=== PATIENT | male | born 1985 | race Caucasian/White ===

== ENCOUNTER 2017-06-21 12:17 | Emergency (ER) | payer OTHER, MEDICAID ==
[~2017-06-21] VITALS: Ht 177.8 cm; Wt 83.9 kg
[~2017-06-21 12:17] MED LIST: BUPRENORPHINE H1 TAB SL; FLEXERIL10 MG PO; HYDROCODONE-APA1 TA1 PO; LORTAB 5/500 501 TAB PO; PREDNISONE50 MG PO; TYLENOL W/CODEI1 TA2 PO
--- OUTSIDE RECORDS SUMMARY | 2017-06-21 12:26 | External Medical Summary Rpt | CCD ---
Author Author , MARLEN GEE Address Unknown Phone [email or web address] Immunization Name Date Rout CVX Reac Dose Comm Prov Is Faci e tion ent ider Refu lity Give sed n Hep 01-0 8 999 Hist H149 No H149 B, 4-20 ori ped/ 02 al adol Info rmat ion - Sour ce Unsp ecif ied Hep 07-0 8 999 Hist H149 No H149 B, 3-20 oric ped/ 01 al adol Info rmat ion - Sour ce Unsp ecif ied Td 05-2 9 999 Hist H149 No H149 (shaneka 9-20 oric lt), 01 al Info adso rmat rbed ion - Sour ce Unsp ecif ied Hep 05-2 8 999 Hist H149 No H149 B, - ori ped/ al adol Info rmat ion - Sour ce Unsp ecif ied MMR 04-1 3 999 Hist H149 No H149 7-19 oric 97 al Info rmat ion - Sour ce Unsp ecif ied
--- OUTSIDE RECORDS SUMMARY | 2017-06-21 12:26 | External Medical Summary Rpt | CCD ---
Author Author , MARLEN GEE Address Unknown Phone [email or web address] Immunization Name Date Rout CVX Reac Dose [...]
--- OUTSIDE RECORDS SUMMARY | 2017-06-21 12:26 | External Medical Summary Rpt | CCD ---
Author Author , MARLEN Organization MARLEN Address Unknown Phone Care Team Providers Care Front Office Director Name Role Phone HAMPTON ALL, HAMPTON ALL Unavailable Unavailable MADELYN CERRATOLEY Unavailable Unavailable GRIFFIN JARETH, Unavailable Unavailable GRIFFIN JARETH FAUGHN GALAN, FAUGHN Unavailable Unavailable GALAN FRYMAN, FRYMAN Unavailable Unavailable FRYMAN EUG, FRYMAN Unavailable Unavailable EU[facility] Un[facility] Unavailable [facility], [facility] Unavailable Unavailable INC, [facility], Unavailable [facility]available [facility], Unavailable Unavailable [facility] Unavailable Unavailable [facility], [facility], Unavailable Unavailable [facility] Unavailable Unavailable [facility], [facility] LIAU JAM, LIAU JAM Unavailable Unavailable [facility], Unavailable Unavailable PLL[facility], [facility] FAWN SCHAFER, FAWN SCHAFER Unavailable Unavailable RENUSCH IRIS, RENUSCH Unavailable Unavailable IRIS GREENE, III, GREENE, Unavailable Unavailable III [facility], Unavailable Unavailable [facility], Unavailable Unavailable [facility] Purpose Continuity of Care Document - 02-03-2015 through 2016 Problems Code Diagnosis DOS Provider Status [id number] PAIN IN 03-16-[address] [facility] LEFT PHYSICIAN SHOULDER GROUP K047 PERIAPICAL 10-09-2016 [facility] WITHOUT SINUS T71715 MIGRAINE 09-08-[address] [facility] W/O AURA PHYSICIANS NOT INTRACT GROUP W/O STAT MIGRAIN K5900 CONSTIPATIO 03-04-2016 [facility] N [facility]ICAL UNSPECIFIED IMAGING ASS K5909 OTHER 03-04-2016 [facility] N INC R1032 LEFT LOWER 03-04-2016 [facility] PAIN IM[facility]ING ASS M7989 OTHER 12-15-2015 [place] [facility]ICAL SPECIFIED SERV SOFT TISSUE FOUNDATION DISORDERS [id number] DSPL FX 12-15-2015 [facility] PHALANX LT THUMB INIT ENC CLOS FX G8918 OTHER ACUTE 12-14-2015 [facility] POSTPROCEDU INC RAL PAIN Z50722 PAIN IN 12-14-2015 [facility] LEFT PHYSICIANS, FINGERS PLLC Z720 TOBACCO USE 12-14-2015 [facility] INC [id number] PAIN IN 11-10-2015 [facility] RIGHT MEDICAL FINGERS IMAGING ASS [id number] LACERATION 11-10-2015 [place] W/O FB LT HOSPITAL THUMB W/O DAMAGE NAIL INIT [id number] DSPL FX 11-10-2015 [facility] PROX PHALNX MEDICAL RT THUMB IMAGING ASS INITIAL ENC OPEN FX [id number] DSPL FX 11-10-2015 [place] [facility] PROX PHALNX SERV LT THUMB FOUNDATION INITIAL ENC OPEN FX [id number] PARTIAL 11-10-2015 [facility] MCP IMAGING ASS AMPUTATION RT THUMB INIT [id number] PARTIAL 11-10-2015 [facility] TRAUMA PHYSICIANS, TRANSPHALAN PLLC GEAL AMP LT THUMB INIT [id number] CONTACT 11-10-2015 [facility] WITH [employer] TOOL INITIAL ENCOUNTER Z23 ENCOUNTER 11-10-2015 [facility] IMMUNIZATIO N 31314 ABDOMINAL 04-01-2015 [facility] PA[facility] OTHER [facility] HOS[facility] SPECIFIED INC SITE 31072 ABDOMINAL 02-03-2015 [facility] PAIN, LEFT MEDICAL LOWER IMAGING ASS QUADRANT Medications Na ND Rx Da Fi Fi Am Da Di Ph RX Ph St me C No te ll ll ou ys ag ar # ys at rm s nt no ma ic us Or Da si cy ia de te s n re d BU 00 08 09 56 28 00 CL Ac IA 22 -1 -1 .0 00 IN ti EN 83 9- 5- 00 00 IC ve OR 15 20 20 43 PH 57 17 17 99 PH IN 3 69 AR -N MA AL CY OX ON 8- 2 MG SL GA 16 02 03 60 30 00 EA Ac BA 71 -1 -[address] ti PE 40 7- 7- 00 00 SI ve NT 66 20 20 47 DE IN 10 17 17 66 1 08 PH 10 AR 0 MA MG CY CA OF PS CY UL NT E HI AN A IN C CE 68 02 03 42 14 00 WA Ac PH 18 -1 -1 .0 00 L- ti AL 00 1- 0- 00 07 MA ve EX 12 20 20 63 RT IN 20 17 17 82 2 02 PH 50 AR 0 MA MG CY CA #5 PS 71 UL E GA 16 01 02 60 30 00 EA Ac BA 71 -1 -[address] ti PE 40 1- 3- 00 00 SI ve NT 66 20 20 47 DE IN 10 17 17 21 1 46 PH 10 AR 0 MA MG CY CA OF PS CY UL NT E HI AN A IN C Immunization Name Date Rout CVX Reac Dose Comm Prov Is Faci e tion ent ider Refu lity Give sed n TDAP 03- 115 VELASQUEZ No VELASQUEZ 4-20 DANNY DANNY VACC 16 MEM MEM INE 7 HOSP HOSP YRS/ INC INC > IM Procedures Procedure DOS Code Location Performer Comment THERAPEUT 58983 BILLY JACKSON 7 Retention [employer] III PROPHYLAC TIC/DX INJECTION SUBQ/IM INJECTION J0696 LEODAN GREENE 7 Retention EducationO, Fortuna Vini III CEFTRIAXO NE SODIUM PER 250 MG THERAPEUT 54268 [facility] IC 6 PHYSICIAN PHYSICIAN PROPHYLAC S GROUP S GROUP TIC/DX INJECTION SUBQ/IM UNCLASSIF J3490 [facility] IED DRUGS 6 [place] [address] [facility] ABDOMEN & 6 [facility] PELVIS INC INC W/CONTRAS T MATERIAL RADEX 91194 [facility] FINGR 6 Y Y MINIMUM 2 HOSPITAL HOSPITAL VIEWS RADEX 22379 [facility] GRIFFIN HAND 6 MEDICAL JARETH MINIMUM 3 IMAGING VIEWS ASS UNCLASSIF J3490 [facility] IED DRUGS 6 MEM H[facility] INC ANES 55060 [facility] GILMAR RADIUS 6 Y OF ULNA [facility] WRIST/BELLO HOSPI D BONES CLOSED PX PRQ SKEL 92270 [place] LIAU JAM FIXJ DSTL 6 MEDICAL PHLNGL SERV FX FOUNDATIO FNGR/THMB N EA RADEX 07726 [facility]PTON ALL FINGR 6 MEDICAL MINIMUM 2 IMAGING VIEWS ASS INFUSION J7030 [facility] NORMAL 6 Y [facility] SOLUTION 1000 CC TDAP 32186 [facility] VACCINE 7 6 MEM HOSP MEM [facility]OSP YRS/> IM INC INC INJECTION 68123 [facility] ANES 6 [facility] OTHER INC INC PERIPHERA L NERVE/BRA NCH UNCLASSIF J3490 [facility] IED DRUGS 6 [place] [address] [facility] INFUSION 6 Y Y THERAPY/P [facility] ROPHYLAXI S /DX 1ST TO 1 HR THERAPEUT 50282 [facility] IC 6 Y Y INJECTION [facility] IV PUSH EACH NEW DRUG INJECTION J0690 [facility] 6 Y Y CEFAZOLIN [facility] SODIUM 500 MG BLOOD 13824 [facility] COUNT 5 MEM H[facility] MEM HOSP COMPLETE INC INC AUTO&AUTO DIFRNTL WBC HEPATITIS 56951 [facility] A 5 [facility] HOS[facility] MEM HOSP ANTIBODY INC INC HAAB HEPATITIS 96215 [facility] C 5 MEM H[facility] MEM [facility]OS[facility] ANTIBODY INC INC SEDIMENTA 20860 [facility] TION RATE 5 MEM HOS[facility] MEM HOS[facility] RBC INC INC NON-AUTOM ATED HEPATITIS 65368 [facility] B CORE 5 MEM HOSP MEM HOSP ANTIBODY INC INC HBCAB TOTAL HEPATITIS 25843 [facility] Ignacio SURF 5 MEM H[facility] [place] [address] [facility] HEPATITIS 5 MEM H[facility] MEM [facility]OS[facility] B INC INC SURFACE ANTIGEN CULTURE 98439 [facility] BACTERIAL 5 [facility] INC [place] [address] LEODAN MOYA ABDOMEN & 5 MEDICAL JARETH PELVIS IMAGING W/O ASS CONTRAST MATERIAL Encounters Encounter Start End Date Code Location Performer Type Date OFFICE [address] [facility] BLOSSOM STEELE 7 7 PHYSICIAN T NEW 20 GROUP MINUTES OFFICE 09424 CEDRIC JACKSON 7 7 Korbit, Fortuna Vini III T NEW 30 MINUTES OFFICE [address] [facility] JULIO CESAR STEELE 7 7 PHYSICIAN T VISIT S GROUP 15 MINUTES OFFICE [address] [facility] JULIO CESAR ESTEVEZPATIEN 6 6 PHYSICIAN EUG T VISIT S GROUP 15 MINUTES HOSPITAL COMPA - 6 6 [facility] 6 6 [facility] - 6 6 [facility] EMERGENCY 04574 COMPA 6 6 [facility] VISIT LOW/MODER SEVERITY EMERGENCY 91724 CINDY ELAM 6 6 PHYSICIAN IRIS Payne [facility] T VISIT HIGH/URGE NT SEVERITY HOSPITAL UNIVERSIT - 6 6 Y [facility] EMERGENCY 91503 UNIVERSIT 6 6 Y [facility] T VISIT MODERATE SEVERITY EMERGENCY 47158 CINDY LOPEZ 6 6 PHYSICIAN CAM WOLFE T VISIT HIGH/URGE NT SEVERITY HOSPITAL COMPA - 5 5 [facility] 42087 CINDY PAPPAS 5 5 PHYSICIAN ANGELIA Payne [facility] T VISIT HIGH/URGE NT SEVERITY
--- OUTSIDE RECORDS SUMMARY | 2017-06-21 12:26 | External Medical Summary Rpt | CCD ---
Demographics Preferred Language Kiswahili Marital Status Unknown Adventism Affiliation Unknown Race Unknown Ethnic Group Unknown Author Author MARLEN Address Unknown Phone [email or web address] Purpose Continuity of Care Document - through 2016
--- OUTSIDE RECORDS SUMMARY | 2017-06-21 12:26 | External Medical Summary Rpt | CCD ---
Author Author , MARLEN Organization MARLEN Address Unknown Phone [email or web address] Care Team Providers Care Route Sales Driver Name Role Phone HAMPTON ALL, HAMPTON ALL Unavailable Unavailable MADELYN CERRATOLEY Unavailable Unavailable GRIFFIN JARETH, Unavailable Unavailable GRIFFIN JARETH FAUGHN GALAN, FAUGHN Unavailable Unavailable GALAN FRYMAN, FRYMAN Unavailable Unavailable FRYMAN EUG, FRYMAN Unavailable Unavailable EUG [facility] Unavailable Unavailable INC, [facility] Unavailable Unavailable INC, [facility], Unavailable [facility]available [facility], Unavailable Unavailable [facility] Unavailable Unavailable IM[facility]ING [facility], [facility], Unavailable Unavailable [facility] Unavailable Unavailable [facility]OUNDATION, [facility] LIAU JAM, LIAU JAM Unavailable Unavailable [facility], Unavailable Unavailable PLLC, [facility] FAWN SCHAFER, FAWN SCHAFER Unavailable Unavailable RENUSCH IRIS, RENUSCH Unavailable Unavailable IRIS GREENE, III, GREENE, Unavailable Unavailable III [facility], Unavailable Unavailable [facility], Unavailable Unavailable [facility] Purpose Continuity of Care Document - 02-03-2015 through 2016 Problems Code Diagnosis DOS Provider Status [id number] PAIN IN 03-16-2017 [facility] LEFT PHYSICIAN SHOULDER GROUP K047 PERIAPICAL 10-09-2016 [facility] WITHOUT SINUS L26638 MIGRAINE 09-08-2016 [facility] W/O AURA PHYSICIANS NOT INTRACT GROUP W/O STAT MIGRAIN K5900 CONSTIPATIO 03-04-2016 [facility] N MEDICAL UNSPECIFIED IMAGING ASS K5909 OTHER 03-04-2016 [facility] N INC R1032 LEFT LOWER 03-04-2016 [facility] PAIN IMAGING ASS M7989 OTHER 12-15-2015 [place] [facility] SPECIFIED SERV SOFT TISSUE FOUNDATION DISORDERS [id number] DSPL FX 12-15-2015 [facility] PHALANX LT THUMB INIT ENC CLOS FX G8918 OTHER ACUTE 12-14-2015 [facility] POSTPROCEDU INC RAL PAIN C48877 PAIN IN 12-14-2015 [facility] LEFT PHYSICIANS, FINGERS PLLC Z720 TOBACCO USE 12-14-2015 [facility] INC O41619 PAIN IN 11-10-2015 [facility] RIGHT MEDICAL FINGERS IMAGING ASS K31985Y LACERATION 11-10-2015 [facility] W/O FB LT HOSPITAL THUMB W/O DAMAGE NAIL INIT K14669Y DSPL FX 11-10-2015 [facility] PROX PHALNX MEDICAL RT THUMB IMAGING ASS INITIAL ENC OPEN FX [id number] DSPL FX 11-10-2015 [place] [facility] PROX PHALNX SERV LT THUMB FOUNDATION INITIAL ENC OPEN FX [id number] PARTIAL 11-10-2015 [facility] MCP IMAGING ASS AMPUTATION RT THUMB INIT Q79084B PARTIAL 11-10-2015 [facility], TRANSPHALAN PLLC GEAL AMP LT THUMB INIT S285HWE CONTACT 11-10-2015 [facility] WITH [employer] TOOL INITIAL ENCOUNTER Z23 ENCOUNTER 11-10-2015 [facility] IMMUNIZATIO N 43531 ABDOMINAL 04-01-2015 [facility] PA[facility] OTHER [facility] HOS[facility] SPECIFIED INC SITE 75456 ABDOMINAL 02-03-2015 [facility] PAIN, LEFT MEDICAL LOWER IMAGING ASS QUADRANT Medications Na ND Rx Da Fi Fi Am Da Di Ph RX Ph St me C No te ll ll ou ys ag ar # ys at rm s nt no ma ic us Or Da si cy ia de te s n re d BU 00 08 09 56 28 00 CL Ac AL 22 -1 -1 .0 00 IN ti [...] Procedure DOS Code Location Performer Comment THERAPEUT 90096 BILLY JACKSON 7 [employer] III PROPHYLAC TIC/DX INJECTION SUBQ/IM INJECTION J0696 LEODAN GREENE 7 Pickup ServicesO, Aeromot III CEFTRIAXO NE SODIUM PER 250 MG THERAPEUT 07072 [facility] IC 6 PHYSICIAN PHYSICIAN PROPHYLAC S GROUP S GROUP TIC/DX INJECTION SUBQ/IM UNCLASSIF J3490 [facility] IED DRUGS [address] [place] [address] [facility] CHATMAN ABDOMEN & 6 MEM H[facility]P [facility] PELVIS INC INC W/CONTRAS T MATERIAL RADEX 06841 [facility] FINGR 6 Y Y MINIMUM 2 HOSPITAL HOSPITAL VIEWS RADEX 63673 [facility] G[facility]FF[facility] HAND 6 MEDICAL JARETH MINIMUM 3 IMAGING VIEWS ASS UNCLASSIF J3490 [facility] IED DRUGS 6 MEM HOSP [facility] INC INC ANES 13373 [facility] GILMAR RADIUS 6 Y OF ULNA [place] WRIST/BELLO HOSPI D BONES CLOSED PX PRQ SKEL 79038 [place] LIAU JAM FIXJ DSTL 6 MEDICAL PHLNGL SERV FX FOUNDATIO FNGR/THMB N EA RADEX 49109 [facility] FINGR 6 MEDICAL MINIMUM 2 IMAGING VIEWS ASS INFUSION J7030 [facility] NORMAL 6 Y [facility] SOLUTION 1000 CC TDAP 47815 [facility] VACCINE 7 6 MEM HOSP [facility]OS[facility] YRS/> IM INC INC INJECTION 58047 [facility] ANES 6 [facility] H[facility] OTHER INC INC PERIPHERA L NERVE/BRA NCH UNCLASSIF J3490 [facility]MAN IED DRUGS 6 [place] [address] [facility] INFUSION 6 Y Y THERAPY/P [facility] ROPHYLAXI S /DX 1ST TO 1 HR THERAPEUT 86928 [facility] IC 6 Y Y INJECTION [facility] IV PUSH EACH NEW DRUG INJECTION J0690 [facility] 6 Y Y CEFAZOLIN [facility] SODIUM 500 MG BLOOD 96964 [facility] COUNT 5 [facility] H[facility]OS[facility] COMPLETE INC INC AUTO&AUTO DIFRNTL WBC HEPATITIS 90973 [facility] A 5 [facility] ANTIBODY INC INC HAAB HEPATITIS 88622 [facility] C 5 [facility] H[facility]OS[facility] ANTIBODY INC INC SEDIMENTA 53283 [facility] TION RATE 5 MEM HOS[facility] RBC INC INC NON-AUTOM ATED HEPATITIS 62488 [facility] B CORE 5 MEM HOSP MEM [facility]OS[facility] ANTIBODY INC INC HBCAB TOTAL HEPATITIS 25925 [facility] Ignacio SURF 5 [facility] [place] [address] [facility] HEPATITIS 5 [facility] B INC INC SURFACE ANTIGEN CULTURE 54487 [facility] BACTERIAL 5 [facility] INC [place] [address] LEODAN MOYA ABDOMEN & 5 MEDICAL JARETH PELVIS IMAGING W/O ASS CONTRAST MATERIAL Encounters Encounter Start End Date Code Location Performer Type Date OFFICE 88750 [facility] BLOSSOM STEELE 7 7 PHYSICIAN T NEW 20 GROUP MINUTES OFFICE 47370 CEDRIC JACKSON 7 7 Canpages, Aeromot III T NEW 30 MINUTES OFFICE 27818 [facility] JULIO CESAR STEELE 7 7 PHYSICIAN T VISIT S GROUP 15 MINUTES OFFICE 62090 [facility] JULIO CESAR ESTEVEZPATIEN 6 6 PHYSICIAN EUG T VISIT S GROUP 15 MINUTES HOSPITAL COMPA - 6 6 [facility] UNIVERSIT - 6 6 Y [facility] COMPA - 6 6 [facility] EMERGENCY 72129 COMPA 6 6 [facility] VISIT LOW/MODER SEVERITY EMERGENCY 37422 CINDY ELAM 6 6 PHYSICIAN IRIS Payne [facility] T VISIT HIGH/URGE NT SEVERITY HOSPITAL UNIVERSIT - 6 6 Y [facility] 50716 UNIVERSIT 6 6 Y [facility] T VISIT MODERATE SEVERITY EMERGENCY 85109 CINDY LOPEZ 6 6 PHYSICIAN CAM WOLFE T VISIT HIGH/URGE NT SEVERITY HOSPITAL COMPA - 5 5 [facility] 27565 CINDY PAPPAS 5 5 PHYSICIAN ANGELIA Payne [facility] T VISIT HIGH/URGE NT SEVERITY
--- OUTSIDE RECORDS SUMMARY | 2017-06-21 12:26 | External Medical Summary Rpt | CCD ---
Demographics Preferred Language Belarusian Marital Status Unknown Jew Affiliation Unknown Race Unknown Ethnic Group Unknown Author Author MARLEN Address Unknown Phone [email or web address] Purpose Continuity of Care Document - through 2016
[2017-06-21 12:49] VITALS: BP 143/91
--- NOTE | 2017-06-21 12:52 | Urgent Treatment Center Report ---
See Addendum History of Present Issue Date/Time Seen by Provider 06/21/17 1237 Visit Reason Pt arrived:Walked Presenting Problem:PT STATES HE WAS AT WORK AND TRIPPED AND FELL ON HIS LEFT SHOULDER. Location if Accident:Work Onset of symptoms date/time:06/21/17 or onset unknown for: Have you (or family members/close friends) recently traveled outside the [place]? N If Yes, where/when: Have you had exposure to infectious disease within the past month? TB? Other? Specify: Patient state that he was at worked when he tripped and fell off platform and landed on his left shoulder area States that he has been having pain and tenderness in the left shoulder and they sent him to the [facility] to get checked out and get an xray ALLERGIES Coded Allergies: No Known Allergies (11/10/15) Home Medications Active Scripts HYDROCODONE 5MG/APAP 325MG (Hydrocodon-Acetaminophen 5-325) 1 TAB PO Q6HP PRN pain #8 TAB Prov: 12/14/15 Reported Medications BUPRENORPHINE HCL/NALOXONE HCL (Buprenorphin-Naloxon 8-2 MG Sl) 0.25 TAB SL PRN PRN ADDICTION #3 History Medical History General CAD? No Angina: No AK: No Hypertension? No Hyperlipidemia? No CHF? No DVT? No PE? No COPD? No Asthma? No Anemia? No GERD? No Gastric ulcers? No GI Bleed? No Hernia? No Thyroid Problems? No Hypothyroidism? No CVA? No Seizures? No Diabetes? No Renal Insuffiency? No UTI? No Stones? No GB Disease: No Nephritic Syndrome? No Asplenia? No Hepatitis? No Sickle Cell Disease? No Arthritis? No Migraines? No Cataracts? No Glaucoma? No MRSA? No HIV? No TB? No Anxiety? No Depression? No Cancer? No Immunization HX DT/Tetanus 1-4 Years Ago Surgical Hx Previous Surgery?Y L HERNIA L THUMB WISDOM TEETH Family History Family HX Diabetes No Hypertension No Cancer Yes TB No Social History Smoking Hx Smoker: Current Every Day Smoker Tobacco: Yes Type Cigarettes Packs/day < 1 Pack Alcohol Alcohol: No Review of Systems All Other Systems Reviewed and Negative Comment Pain and tenderness in left shoulder after falling at work Physical Exam Vital Signs Vital Signs Date Time Temp Pulse Resp B/P Pulse O2 O2 Flow FiO2 Ox Delivery Rate 06/21 1258 18 06/21 1249 98.8 68 18 143/91 06/21 1230 98.8 68 18 143/91 General Appearance normal appearance, WD/WN Respiratory Status Yes: trachea midline, chest symmetrical. No: respiratory distress. Cardiovascular normal exam, regular rate/rhythm Extremities Pain and tenderness left shoulder after falling at work, no deformities, denies numbness, denies tingling Neurologic alert, normal exam, oriented x 3 Medical Decision Making LABS/Meds/Orders Pt receiving controlled substance in ED? No Results/Orders Current Medication Orders Sig/Adilson Start time Last Medication Dose Route Stop Time Status Admin Ketorolac 60 MG ONCE ONE 06/21 1300 DC 06/21 Tromethamine IM 06/21 1301 1258 Ketorolac 0 .STK-MED ONE 06/21 1254 DC Tromethamine .ROUTE Orders Procedure Date/time Status [facility] STABILIZE JOINT/AREA 06/21 1300 Active [id number] VIEWS 06/21 1228 Active XRAY/CT/US XRAY/CT/US XRAY shoulder XR interpretation by reviewed by me Xray Results no fracture seen Departure Departure Time of Disposition 1250 Disposition DC Home or Self Care(routine) Clinical Impression Primary Impression: Shoulder injury Condition STABLE Referrals Dov MTZ,Vipul (Family) No MTZ,Vinod: 1 Day-Call Office HE MTZ, AUGIE MCDANIEL: 1 Day-Call Office Patient Instructions DI for Shoulder Pain, How To Perform RICE (Rest, Ice, Compress, Elevate) Additional Instructions *RICE, Rest the extremity, Ice 15-20 minutes 3-4 times daily, Compress- wear the adriano wrap as discussed as much as possible to help reduce swelling and pain, Elevate the extremity when at rest *Adriano wrap is for support and help control swelling, use it except in the shower. Be sure that is not to tight but not to loose either *Elevate when resting *Ibuprofen 600-800mg every 6-8 hours as needed for pain an inflammation. If need something more can take Tylenol in between doses of Ibuprofen to help Immediately follow up for new or worsening of symptoms, or no noticeable improvement over the next 3-5 days Discharge Counseling Counseled pt/family regarding diagnosis, test results, medications/RX, home care Prescriptions Current Visit Scripts Ibuprofen (Ibuprofen 800MG) 800 MG PO QIDP PRN pain #30 TAB at 8880
--- NOTE | 2017-06-21 12:52 | Urgent Treatment Center Report ---
See Addendum History of Present Issue Date/Time Seen by Provider 06/21/17 1237 Visit Reason Pt arrived:Walked Presenting Problem:PT STATES HE WAS AT WORK AND TRIPPED AND FELL ON HIS LEFT SHOULDER. Location if Accident:Work Onset of symptoms date/time:06/21/17 or onset unknown for: Have you (or family members/close friends) recently traveled outside the [place]? N If Yes, where/when: Have you had exposure to infectious disease within the past month? TB? Other? Specify: Patient state that he was at worked when he tripped and fell off platform and landed on his left shoulder area States that he has been having pain and tenderness in the left shoulder and they sent him to the [facility] to get checked out and get an xray ALLERGIES Coded Allergies: No Known Allergies (11/10/15) Home Medications Active Scripts HYDROCODONE 5MG/APAP 325MG (Hydrocodon-Acetaminophen 5-325) 1 TAB PO Q6HP PRN pain #8 TAB Prov: 12/14/15 Reported Medications BUPRENORPHINE HCL/NALOXONE HCL (Buprenorphin-Naloxon 8-2 MG Sl) 0.25 TAB SL PRN PRN ADDICTION #3 History Medical History General CAD? No Angina: No RI: No Hypertension? No Hyperlipidemia? No CHF? No DVT? No PE? No COPD? No Asthma? No Anemia? No GERD? No Gastric ulcers? No GI Bleed? No Hernia? No Thyroid Problems? No Hypothyroidism? No CVA? No Seizures? No Diabetes? No Renal Insuffiency? No UTI? No Stones? No GB Disease: No Nephritic Syndrome? No Asplenia? No Hepatitis? No Sickle Cell Disease? No Arthritis? No Migraines? No Cataracts? No Glaucoma? No MRSA? No HIV? No TB? No Anxiety? No Depression? No Cancer? No Immunization HX DT/Tetanus 1-4 Years Ago Surgical Hx Previous Surgery?Y L HERNIA L THUMB WISDOM TEETH Family History Family HX Diabetes No Hypertension No Cancer Yes TB No Social History Smoking Hx Smoker: Current Every Day Smoker Tobacco: Yes Type Cigarettes Packs/day < 1 Pack Alcohol Alcohol: No Review of Systems All Other Systems Reviewed and Negative Comment Pain and tenderness in left shoulder after falling at work Physical Exam Vital Signs Vital Signs Date Time Temp Pulse Resp B/P Pulse O2 O2 Flow FiO2 Ox Delivery Rate 06/21 1258 18 06/21 1249 98.8 68 18 143/91 06/21 1230 98.8 68 18 143/91 General Appearance normal appearance, WD/WN Respiratory Status Yes: trachea midline, chest symmetrical. No: respiratory distress. Cardiovascular normal exam, regular rate/rhythm Extremities Pain and tenderness left shoulder after falling at work, no deformities, denies numbness, denies tingling Neurologic alert, normal exam, oriented x 3 Medical Decision Making LABS/Meds/Orders Pt receiving controlled substance in ED? No Results/Orders Current Medication Orders Sig/Adilson Start time Last Medication Dose Route Stop Time Status Admin Ketorolac 60 MG ONCE ONE 06/21 1300 DC 06/21 Tromethamine IM 06/21 1301 1258 Ketorolac 0 .STK-MED ONE 06/21 1254 DC Tromethamine .ROUTE Orders Procedure Date/time Status [facility] STABILIZE JOINT/AREA 06/21 1300 Active [id number] VIEWS 06/21 1228 Active XRAY/CT/US XRAY/CT/US XRAY shoulder XR interpretation by reviewed by me Xray Results no fracture seen Departure Departure Time of Disposition 1250 Disposition DC Home or Self Care(routine) Clinical Impression Primary Impression: Shoulder injury Condition STABLE Referrals Dov MTZ,Vipul (Family) No MTZ,Vinod: 1 Day-Call Office HE MTZ, AUGIE MCDANIEL: 1 Day-Call Office Patient Instructions DI for Shoulder Pain, How To Perform RICE (Rest, Ice, Compress, Elevate) Additional Instructions *RICE, Rest the extremity, Ice 15-20 minutes 3-4 times daily, Compress- wear the adriano wrap as discussed as much as possible to help reduce swelling and pain, Elevate the extremity when at rest *Adriano wrap is for support and help control swelling, use it except in the shower. Be sure that is not to tight but not to loose either *Elevate when resting *Ibuprofen 600-800mg every 6-8 hours as needed for pain an inflammation. If need something more can take Tylenol in between doses of Ibuprofen to help Immediately follow up for new or worsening of symptoms, or no noticeable improvement over the next 3-5 days Discharge Counseling Counseled pt/family regarding diagnosis, test results, medications/RX, home care Prescriptions Current Visit Scripts Ibuprofen (Ibuprofen 800MG) 800 MG PO QIDP PRN pain #30 TAB at 4709
[2017-06-21] MEDS ORDERED: IBUPROFEN800 MG PO (13:01)
--- NOTE | 2017-06-21 14:25 | RADIOLOGY REPORT PS360 ---
[id number] VIEWS HISTORY: Pain following injury FELL AT WORK ORDERING PHYSICIAN: VIKY ASTUDILLO APRN PATIENT AGE: 32 years COMPARISON: 07/11/2012 FINDINGS: No fracture or dislocation. No lytic or blastic change. There is normal mineralization. The joint spaces are well-preserved. No significant degenerative/arthritic changes. No erosive changes evident. The left glenoid is shallow as before. IMPRESSION: No acute finding
== END 2017-06-21 13:06 | disposition home or self-care (01) ==
LOC: UTC 12:17
DX: S49.92XA Unspecified injury of left shoulder and upper arm, initial encounter (principal); W01.0XXA Fall on same level from slipping, tripping and stumbling without subsequent striking against object, initial encounter; Y92.63 Factory as the place of occurrence of the external cause; F17.210 Nicotine dependence, cigarettes, uncomplicated

== ENCOUNTER → 2017-07-15 | Outpatient (CLI) | payer OTHER, MEDICAID ==
[~2017-07-15] MED LIST changes: +IBUPROFEN800 MG PO
--- NOTE | 2017-07-19 11:49 | RADIOLOGY REPORT PS360 ---
MRI UP EXT ANY JNT WITHOUT-LT MRI LEFT SHOULDER HISTORY: INJURY OF LT SHOULDERq left shoulder pain. Injury at work June 21. Pain and scapula. Pain extends down arm. Patient Age: 32 years: Male Ordering Physician: AUGIE CUTLER MD TECHNIQUE: Multiplanar multisequence imaging 1.5 T MR. . Patient was initially scanned on 07/15/2017 and rescan on 07/18/2017 due to the unusual anatomy & features. At this shoulder.. The T1 images I find and most useful information regarding the performed osseous glenoid and variations of glenoid labrum. COMPARISON :Plain films both shoulders recently performed . FINDINGS: Abnormal Dysplastic appearing osseous glenoid. I tend to favor this is a congenital dysplasia rather than the sequela of old fracture after further review.. The humeral head articulates with this modest broad shallow flattening appearing glenoid.. Deficient posterior osseous glenoid most notable... With this there is a unusually a prominent posterior glenoid labrum. Also less prominent superior & inferior glenoid labrum Observed. . The humeral head and neck are intact. . Very slight Slight downward oriented acromion. Adequate only slightly narrowing subacromial space.. The supraspinatus with minor tendinopathy and critical zone just beneath the tip of acromion no full-thickness tear. Unlikely partial tear.The infraspinatus tendon is intact. Subscapularis tendon intact. . There is subchondral cystic and/or insertional erosions at posterior humeral head near the infraspinatus insertion.... Generous venous structures are again seen about the shoulder with a coalescence of dilated vein yield particularly prominent vein notable region of suprascapular notch region. This feature less evident on the follow-up studies Initial set of images but again evident. There are reports of a large suprascapular vein vein healing compression upon suprascapular nerve thus this requires correlation.. The AC joint appears intact with slight increased fluid AC joint noted. No widening. The muscles of rotator cuff seem to be fairly well-developed. IMPRESSION 1. Abnormal osseous glenoid. 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 Also generous of superior & inferior labrum also associated with this shallow glenoid. . 2. Other observations:... --... Incidental note Unusually prominent suprascapular vein at the suprascapular notch.- Requires correlation. It is less evident on the repeat study done initial exam. --. Slight increased signal at subscapularis tendon critical zone may reflect mild supraspinatus tendinopathy. Although considered I doubt minor undersurface tear.. No high-grade rotator cuff tear evident. -- Insertional erosions,/vs/minimal subchondral cysts, posteriorly normal head, just medial to the infraspinatus insertion noted. Nonspecific not of current significance. --No acute fracture evident
== END ==
LOC: RAD 08:00
DX: S49.92XA Unspecified injury of left shoulder and upper arm, initial encounter (principal)

== ENCOUNTER → 2017-07-18 | Outpatient (CLI) | payer OTHER, MEDICAID ==
--- NOTE | 2017-07-27 11:16 | RADIOLOGY REPORT PS360 ---
[id number] VIEWS, [id number] VIEWS Ordering Physician: AUGIE CUTLER MD Patient Age: 32 years: Male HISTORY: LEFT SHOULDER INJURY,RT SHOULDER PAIN TECHNIQUE: 4 view both right and left shoulder axillary, transaxillary view, Grashey view. Supraspinatus view Transaxillary view COMPARISON :06/21/17 left shoulder. & AC joint radiographs June 2012 . Also left shoulder compared to right shoulder from today ==== LEFT SHOULDER 4 view Shallow flattened appearance to the glenoid with slight undulating character at its inferior//posterior aspect. These features most evident on the axillary, transaxillary views.. 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 The somewhat flattened appearance of the glenoid which appears stable since June 2012 AC joint views-similar stable appearance since that time radiographically... AC joint appears intact with the femoral head and neck appear intact. Bones well mineralized. The upper ribs and left clavicle appear intact. Scapula is unremarkable. ===== RIGHT SHOULDER 4 views The right shoulder has a overall more normal appearance although question of very very very slight shallow character of the right glenoid but this is questionable. The glenoid and humeral head with normal relationships. AC joint intact. Coracoid and acromion appear intact . IMPRESSION: 1. Left shoulder:. Abnormal left glenoid. 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 Similar/stable radiographic appearance to 2011 AC joint views Shallow flattened slight undulating character of the left osseous glenoid evident. 2. Right shoulder:. Right glenoid appears within normal limits., although may be very very slightly shallow I would consider is within normal limits on these images
== END ==
LOC: RAD 09:12
DX: S49.92XA Unspecified injury of left shoulder and upper arm, initial encounter (principal); M25.511 Pain in right shoulder